=== PATIENT | male | born 1970 | race Two or more races ===

== ENCOUNTER 2025-03-19 02:21 | Emergency (ER) | payer MEDICAID, SELFPAY ==
[2025-03-19 02:22] VITALS: BMI 33.2
[2025-03-19 03:00] VITALS: BP 144/91; PULSE 74; RESP 16; TEMP 36.7; O2SAT 98
[2025-03-19] MEDS: HYDROcodone/APAP 5/325 TABLET 1 TAB PO (03:57)
[2025-03-19] MEDS: BACLOFEN 10 MG TABLET PO (03:58)
--- NOTE | 2025-03-19 04:12 | EDNOTE_ITS ---
ED Back Injury Pain RME/HPI General Chief Complaint: Back Pain/Injury Stated Complaint: SCIATICA PAIN Time Seen by Provider: 03/19/25 03:45 Arrival date/time: 03/19/25 02:21 55M with history of DM presents to ED with several months of intermittent R lower back pain that radiates down RLE after some accident. Limitations: no limitations Related Data Home Medications ?Medication ?Instructions ?Recorded ?Confirmed metformin 1,000 mg tablet 1,000 mg PO BID 12/15/20 Previous Rx's ?Medication ?Instructions ?Recorded acetaminophen 500 mg capsule 1,000 mg (2 x 500 mg) PO TID #30 02/24/24 caps hydrocodone 5 mg-acetaminophen 325 1 tab PO Q8H PRN pa in #10 tabs 04/05/24 mg tablet ondansetron 4 mg disintegrating 4 mg PO Q8H PRN nausea and 04/05/24 tablet vomiting #20 tabs Allergies Allergy/AdvReac Type Severity Reaction Status Date / Time cyclobenzaprine Allergy Mild RASH Verified 12/15/20 08:22 ketorolac (From Toradol) Allergy Verified 12/15/20 08:22 tramadol AdvReac Severe SEIZURE Verified 12/15/20 08:22 ibuprofen AdvReac Intermediate Abdominal Verified 12/15/20 08:22 Pain Review of Systems Review of Systems Systems Reviewed: All systems reviewed, normal except as documented Constitutional Constitutional: Reports system reviewed and no additional complaints, except as documented, Denies fever(s) and Denies headache(s) ENT Ears, Nose, Mouth, and Throat: Denies disequilibrium and Denies headache(s) Cardiovascular Cardiovascular: Reports system reviewed and no additional complaints, except as documented, Denies chest pain and Denies dyspnea Respiratory Respiratory: Reports system reviewed and no additional complaints, except as documented, Denies cough and Denies dyspnea Gastrointestinal Gastrointestinal: Reports system reviewed and no additional complaints, except a s documented, Denies abdominal pain, Denies nausea and Denies vomiting Musculoskeletal Musculoskeletal: Reports as per HPI, Reports back pain and Reports radiating pain into limb Neurologic Neurologic: Reports system reviewed and no additional complaints, except as documented, Denies confusion, Denies disequilibrium and Denies headache(s) Psychiatric Psychiatric: Denies confusion Past Medical History Past Medical History CARDIAC: Negative Congestive Heart Failure or Hypertension RESPIRATORY: Negative Chronic Obstructive Pulmonary Disease (COPD) GENITOURINARY: Negative Renal Disease ENT: Negative Glaucoma ENDOCRINE: Positive Diabetes Mellitus Type 2; Negative Diabetes Mellitus Type 1 HEMATOLOGIC: Negative Blood Disorders Social History SMOKING STATUS: Never smoker ED Exam General Limitations: Present no limitations General appearance: Present alert and in no apparent distress Head Head exam: Present atraumatic Eye Eye exam: Present normal appearance, PERRL and EOMI ENT ENT exam: Present normal exam, normal oropharynx and mucous membranes moist Neck Neck exam: Present normal inspection, full ROM and trachea midline Chest Chest inspection: Present normal inspection and symmetric chest wall rise Respiratory Respiratory exam: Present normal lung sounds bilaterally Cardiovascular Cardiovascular exam: Present regular rate, normal rhythm and normal heart sounds Abdominal Exam Abdominal exam: Present soft and normal bowel sounds Extremities Exam Extremities exam: Present normal inspection and full ROM Back Exam Back exam: Present normal inspection and full ROM Neurological Exam Neurological exam: Present alert, oriented X3 and CN II-XII intact Psychiatric Psychiatric exam: Present normal affect and normal mood Skin Skin exam: Present warm, dry, intact and normal color Course Quality Measures none Orders Category Date Time Status Baclofen [Lioresal] Med 03/19/25 03:45 Discontinued 10 mg PO X1 ONE HYDROcodone*/APAP 5/325 [[place] 5/325] Med 03/19/25 03:45 Discontinued 1 tab PO X1 ONE Vital Signs Vital signs: Vital Signs Temperature 98.0 F 03/19/25 03:00 Pulse Rate 74 03/19/25 03:00 Respiratory Rate 16 03/19/25 03:00 Blood Pressure 144/91 H 03/19/25 03:00 Pulse Oximetry (%) 98 03/19/25 03:00 Oxygen Delivery Method Room Air 03/19/25 03:00 O2 at 98% on RA and WNLs Back Pain / Injury MDM Narrative MDM Narrative:: 55M with history of DM presents to ED with several months of intermittent R lower back pain that radiates down RLE after some accident. Physical exam reveals no obvious RLE abnormality. Patient is afebrile, calm, and alert. Meds and counselor camp given. Patient data External records reviewed:: [facility] previous records Clinical information provided by:: patient Social determinants that could affect healthcare access:: none Patient has the following chronic illnesses:: DM How is presenting disease/condition affected by chronic disease/condition?: exacerbated by Evaluation data The following diagnostics were reviewed and interpreted by me:: other (specify) (none) Lab and/or radiology exams considered but not ordered:: not ordered Interpretation Summary: n/a Medications / Prescriptions Medications or Prescriptions considered but not ordered:: ordered Medication administrations:: Medication Administration History Discontinued Medications Hydrocodone Bitart/Acetaminophen (Hydrocodone/Apap 5/325 Tablet) 1 tab PO X1 ONE Stop: 03/19/25 03:46 Last Admin: 03/19/25 03:57 Dose: 1 tab Documented By: DIPAK Baclofen (Baclofen 10 Mg Tablet) 10 mg PO X1 ONE Stop: 03/19/25 03:46 Last Admin: 03/19/25 03:58 Dose: 10 mg Documented By: DIPAK above Consultations Consultation(s) initiated? (list below): No Diagnosis Differential diagnosis back pain/injury: lumbar radiculopathy, sciatica, strain of lumbar region, renal colic, pyelonephritis, thoracic back pain, AAA and discitis Most likely diagnosis given after review of the tests above:: sciatica Admission Indicated Admission indicated?: not indicated Admission Request Was there a request for admission?: No Disposition Plan Disposition Plan: Discharge Discharge Attestation Discharge Attestation: The patient and all family members were given an opportunity to ask questions and understood the discharge instructions. Discharge instructions specifically effects, indications for sooner follow up or return to the emergency department, and the expected course of current diagnosis. Patient condition: Stable Discharge Plan Plan Patient Disposition: HOME (Self Care) Discharge Disposition comment: Stable Prescriptions/Referrals Prescriptions/Med Rec: No Action metformin 1,000 mg tablet 1,000 mg PO BID acetaminophen 500 mg capsule 1,000 mg PO TID Qty: 30 0RF ondansetron 4 mg tablet,disintegrating 4 mg PO Q8H PRN (Reason: nausea and vomiting) Qty: 20 0RF hydrocodone-acetaminophen 5-325 mg tablet 1 tab PO Q8H MDD 3 PRN (Reason: pain) Qty: 10 0RF Problem List Clinical Impression: Sciatica Patient/Caregiver Discharge Instructions Education Materials: Self Care Back Day, ED Sciatica Additional Instructions: Please follow-up with PCP within 24-48 hours and return immediately if symptoms worsen. If problem persists, recommend outpatient PT and/or MRI follow-up. In the meantime, rest, use ice/heat, and/or compression. Print Language: Setswana Stand Alone Forms: Patient Portal Info Letter HAI/LOGAN Supervising Physician HAI/LOGAN Supervising Physician: Dr. Horne
== END 2025-03-19 04:24 | disposition home or self-care (01) ==
PROVIDERS: Emergency Provider Emergency Medicine; PCP Pediatrics
DX: M54.41 Lumbago with sciatica, right side (principal)
CPT/HCPCS: 99282; A9270

== ENCOUNTER 2025-04-08 21:00 | Emergency (ER) | payer MEDICAID, SELFPAY ==
[2025-04-08 21:02] VITALS: BMI 32.3
[2025-04-08 21:53] VITALS: BP 147/92; PULSE 94; RESP 18; TEMP 36.8; O2SAT 97
[2025-04-08] MEDS: BACLOFEN 10 MG TABLET PO (22:19)
--- NOTE | 2025-04-09 04:25 | PD.EDBACK ---
ED Back Injury Pain RME/HPI General Chief Complaint: Extremity Problem,Nontraumatic Stated Complaint: RIGHT HIP PAIN RADIATING TO FOOT Time Seen by Provider: 04/08/25 22:01 Arrival date/time: 04/08/25 21:00 55M with history of DM presents to ED with several months of intermittent R lower back pain that radiates down RLE after some accident. Patient denies fall/trauma and leg swelling. Limitations: no limitations Related Data Home Medications ?Medication ?Instructions ?Recorded ?Confirmed metformin 1,000 mg tablet 1,000 mg PO BID 12/15/20 12/15/20 Previous Rx's ?Medication ?Instructions ?Recorded acetaminophen 500 mg capsule 1,000 mg (2 x 500 mg) PO TID #30 02/24/24 caps hydrocodone 5 mg-acetaminophen 325 1 tab PO Q8H PRN pain #10 tabs 04/05/24 mg tablet ondansetron 4 mg disintegrating 4 mg PO Q8H PRN nausea and 04/05/24 tablet vomiting #20 tabs Allergies Allergy/AdvReac Type Severity Reaction Status Date / Time cyclobenzaprine Allergy Mild RASH Verified 04/08/25 21:02 ketorolac (From Toradol) Allergy Verified 04/08/25 21:02 tramadol AdvReac Severe SEIZURE Verified 04/08/25 21:02 ibuprofen AdvReac Intermediate Abdominal Verified 04/08/25 21:02 Pain Review of Systems Review of Systems Systems Reviewed: All systems reviewed, normal except as documented Constitutional Constitutional: Reports system reviewed and no additional complaints, except as documented, Denies fever(s) and Denies headache(s) ENT Ears, Nose, Mouth, and Throat: Denies disequilibrium and Denies headache(s) Cardiovascular Cardiovascular: Reports system reviewed and no additional complaints, except as documented, Denies chest pain and Denies dyspnea Respiratory Respiratory: Reports system reviewed and no additional complaints, except as documented, Denies cough and Denies dyspnea Gastrointestinal Gastrointestinal: Reports system reviewed and no additional complaints, except as documented, Denies abdominal pain, Denies nausea and Denies vomiting Musculoskeletal Musculoskeletal: Reports as per HPI, Reports back pain and Reports radiating pain into limb Neurologic Neurologic: Reports system reviewed and no additional complaints, except as documented, Denies confusion, Denies disequilibrium and Denies headache(s) Psychiatric Psychiatric: Denies confusion Past Medical History Past Medical History CARDIAC: Negative Congestive Heart Failure or Hypertension RESPIRATORY: Negative Chronic Obstructive Pulmonary Disease (COPD) GENITOURINARY: Negative Renal Disease ENT: Negative Glaucoma ENDOCRINE: Positive Diabetes Mellitus Type 2; Negative Diabetes Mellitus Type 1 HEMATOLOGIC: Negative Blood Disorders Social History SMOKING STATUS: Never smoker ED Exam General Limitations: Present no limitations General appearance: Present alert and in no apparent distress Head Head exam: Present atraumatic Eye Eye exam: Present normal appearance, PERRL and EOMI ENT ENT exam: Present normal exam, normal oropharynx and mucous membranes moist Neck Neck exam: Present normal inspection, full ROM and trachea midline Chest Chest inspection: Present normal inspection and symmetric chest wall rise Respiratory Respiratory exam: Present normal lung sounds bilaterally Cardiovascular Cardiovascular exam: Present regular rate, normal rhythm and normal heart sounds Abdominal Exam Abdominal exam: Present soft and normal bowel sounds Extremities Exam Extremities exam: Present normal inspection and full ROM Back Exam Back exam: Present normal inspection and full ROM Neurological Exam Neurological exam: Present alert, oriented X3 and CN II-XII intact Psychiatric Psychiatric exam: Present normal affect and normal mood Skin Skin exam: Present warm, dry, intact and normal color Course Quality Measures none Orders Category Date Time Status Baclofen [Lioresal] Med 04/08/25 22:01 Discontinued 10 mg PO X1 ONE oxyCODONE/APAP 5/325 [Percocet 5/325] Med 04/08/25 22:01 Discontinued 1 tab PO X1 ONE Vital Signs Vital signs: Vital Signs Temperature 98.2 F 04/08/25 21:53 Pulse Rate 94 04/08/25 21:53 Respiratory Rate 18 04/08/25 21:53 Blood Pressure 147/92 H 04/08/25 21:53 Pulse Oximetry (%) 97 04/08/25 21:53 Oxygen Delivery Method Room Air 04/08/25 21:53 O2 at 97% on RA and WNLs Back Pain / Injury MDM Narrative MDM Narrative:: 55M with history of DM presents to ED with several months of intermittent R lower back pain that radiates down RLE after some accident. Patient denies fall/trauma and leg swelling. Physical exam reveals no obvious RLE abnormality. Patient is afebrile, calm, and alert. Meds and assessment counselor given. Patient data External records reviewed:: [facility] previous records Clinical information provided by:: patient Social determinants that could affect healthcare access:: none Patient has the following chronic illnesses:: DM How is presenting disease/condition affected by chronic disease/condition?: exacerbated by Evaluation data The following diagnostics were reviewed and interpreted by me:: other (specify) (none) Lab and/or radiology exams considered but not ordered:: not ordered Interpretation Summary: n/a Medications / Prescriptions Medications or Prescriptions considered but not ordered:: ordered Medication administrations:: Medication Administration History Discontinued Medications Baclofen (Baclofen 10 Mg Tablet) 10 mg PO X1 ONE Stop: 04/08/25 22:02 Last Admin: 04/08/25 22:19 Dose: 10 mg Documented By: XOCHITL Oxycodone/Acetaminophen (Oxycodone/Apap 5/325 Tablet) 1 tab PO X1 ONE Stop: 04/08/25 22:02 Last Admin: 04/08/25 22:19 Dose: 1 tab Documented By: XOCHITL above Consultations Consultation(s) initiated? (list below): No Diagnosis Differential diagnosis back pain/injury: lumbar radiculopathy, sciatica, strain of lumbar region, renal colic, pyelonephritis, thoracic back pain, AAA and discitis Most likely diagnosis given after review of the tests above:: sciatica Admission Indicated Admission indicated?: not indicated Admission Request Was there a request for admission?: No Disposition Plan Disposition Plan: Discharge Discharge Attestation Discharge Attestation: The patient and all family members were given an opportunity to ask questions and understood the discharge instructions. Discharge instructions specifically effects, indications for sooner follow up or return to the emergency department, and the expected course of current diagnosis. Patient condition: Stable Discharge Plan Plan Patient Disposition: HOME (Self Care) Discharge Disposition comment: Stable Prescriptions/Referrals Prescriptions/Med Rec: No Action metformin 1,000 mg tablet 1,000 mg PO BID acetaminophen 500 mg capsule 1,000 mg PO TID Qty: 30 0RF ondansetron 4 mg tablet,disintegrating 4 mg PO Q8H PRN (Reason: nausea and vomiting) Qty: 20 0RF hydrocodone-acetaminophen 5-325 mg tablet 1 tab PO Q8H MDD 3 PRN (Reason: pain) Qty: 10 0RF Problem List Clinical Impression: Sciatica Patient/Caregiver Discharge Instructions Education Materials: ED Sciatica Additional Instructions: Please follow-up with PCP within 24-48 hours and return immediately if symptoms worsen. If problem persists, recommend outpatient PT and/or MRI follow-up. In the meantime, rest, use ice/heat, and/or compression. Print Language: Northern Irish Stand Alone Forms: Patient Portal Info Letter PA/BUSINESS PROCESS LEAD Supervising Physician PA/BUSINESS PROCESS LEAD Supervising Physician: Dr. Frias
== END 2025-04-08 22:21 | disposition home or self-care (01) ==
LOC: SERX 22:28
PROVIDERS: Emergency Provider Emergency Medicine
DX: M54.40 Lumbago with sciatica, unspecified side (principal); E11.9 Type 2 diabetes mellitus without complications; Z79.84 Long term (current) use of oral hypoglycemic drugs; Z88.6 Allergy status to analgesic agent; Z88.5 Allergy status to narcotic agent; Z88.8 Allergy status to other drugs, medicaments and biological substances
CPT/HCPCS: 99282; A9270